=== PATIENT | female | born 1970 | race Caucasian/White ===

== ENCOUNTER 2021-09-22 15:00 | Outpatient (CLI) | payer BC | END 2021-09-22 15:01 | disposition home or self-care (01) | LOC: CSHRAD 15:00 | PROVIDERS: ATTEND Chiropractor | DX: M54.12 Radiculopathy, cervical region (principal); M47.812 Spondylosis without myelopathy or radiculopathy, cervical region; M50.322 Other cervical disc degeneration at C5-C6 level; M48.02 Spinal stenosis, cervical region | CPT/HCPCS: 72050 ==

== ENCOUNTER 2021-11-13 14:25 | Outpatient (CLI) | payer OTHER, BC | END 2021-11-13 14:26 | disposition home or self-care (01) | LOC: CSHRAD 14:25 | PROVIDERS: ATTEND Nurse Practitioner Family | DX: W54.0XXD Bitten by dog, subsequent encounter (principal); S62.634D Displaced fracture of distal phalanx of right ring finger, subsequent encounter for fracture with routine healing ==

== ENCOUNTER 2024-04-03 13:18 | Outpatient (CLI) | payer BC | END 2024-04-03 13:19 | disposition home or self-care (01) | LOC: CSHMAMMO 13:18 | DX: Z12.31 Encounter for screening mammogram for malignant neoplasm of breast (principal) | CPT/HCPCS: 77063; 77067 ==